=== PATIENT | female | born 1995 | race Caucasian/White ===

== ENCOUNTER 2023-02-07 16:30 | Outpatient (REF) | payer MEDICAID, SELFPAY | END 2023-02-07 16:31 | disposition home or self-care (01) | LOC: HO.HHCLNP 16:30 | PROVIDERS: Visit Provider Emergency Medicine | DX: R10.32 Left lower quadrant pain (principal) | CPT/HCPCS: 87086; 87088; 87186 ==

== ENCOUNTER 2023-05-23 10:31 | Outpatient (REF) | payer MEDICAID, OTHER, SELFPAY ==
[2023-05-23 11:18] LABS: MANUAL DIFF FLAG NO
[2023-05-23 11:27] LABS: Basophils Percent Auto 0.5 % (0-2); Eosinophils Percent Auto 0.7 % (0-4); Hemoglobin 13.2 g/dl (12.0-16.0); Imm Gran Abs Auto 0.02 X10*3/uL (0.00-0.03); Imm Gran Pct Auto 0.3 % (0.0-0.4); Lymphocytes Absolute Auto 2.3 X10*3/uL (1.2-4.9); Lymphocytes Percent Auto 38.4 % (20-40); Mean Corpuscular HGB Conc 33.8 g/dl (31.0-35.0); Mean Corpuscular Hemoglobin 30.3 pg (27.0-33.0); Mean Corpuscular Volume 89.7 fL (80.0-98.0); Mean Platelet Volume 9.9 fL (9.4-12.3); Monocytes Absolute Auto 0.3 X10*3/uL (0.1-1.2); Monocytes Percent Auto 5.7 % (2-11); Neutrophils Absolute Auto 3.2 x10*3/uL (2.0-8.3); Neutrophils Percent Auto 54.4 % (45-73); Platelet Count 340 X10*3/uL (160-400); Red Blood Count 4.35 X10*6/uL (4.20-5.50); Red Cell Distribution Width 12.6 % (11.0-16.0); White Blood Count 5.9 X10*3/uL (4.8-10.8)
[2023-05-23 11:36] LABS: Estimated Average Glucose 91 mg/dL; Hemoglobin A1c % 4.8 % (<6.0)
[2023-05-23 12:23] LABS: TSH reflex Free T4 1.47 uIU/mL (0.32-4.0)
[2023-05-24 17:24] LABS: C. trachomatis RNA TMA NOT DETECTED (NOT DETECTED); Candida glabrata RNA NOT DETECTED (NOT DETECTED); Candida species RNA NOT DETECTED (NOT DETECTED); N. gonorrhoeae RNA TMA NOT DETECTED (NOT DETECTED); Trichomonas vaginalis RNA NOT DETECTED (NOT DETECTED)
== END 2023-05-23 10:32 | disposition home or self-care (01) ==
LOC: HO.HHCL 10:31
PROVIDERS: Visit Provider Nurse Practitioner
DX: R82.90 Unspecified abnormal findings in urine (principal); R55 Syncope and collapse
CPT/HCPCS: 36415; 81513; 83036; 84443; 85025; 87086; 87088; 87186; 87481; 87491; 87591; 87661

== ENCOUNTER 2023-07-25 19:19 | Outpatient (REF) | payer MEDICAID, OTHER, SELFPAY | END 2023-07-25 19:20 | disposition home or self-care (01) | LOC: HO.HHCLNP 19:19 | PROVIDERS: Visit Provider Nurse Practitioner | DX: R82.90 Unspecified abnormal findings in urine (principal) | CPT/HCPCS: 87086; 87088; 87186 ==

== ENCOUNTER 2024-02-01 12:24 | Outpatient (REF) | payer MEDICAID, OTHER, SELFPAY ==
[2024-02-01 14:09] LABS: Anion Gap 10 (12-20); Blood Urea Nitrogen 10 mg/dL (9-16); Calcium 9.3 mg/dL (8.4-10.2); Carbon Dioxide 30 mmol/L (22-29); Chloride 105 mmol/L (96-108); Estimated Glomerular Filt Rate > 60; Glucose Random 77 mg/dL (60-115); Potassium 3.2 mmol/L (3.3-5.1); Sodium 142 mmol/L (135-145)
[2024-02-02 11:06] LABS: Bacterial Vaginosis PCR NEGATIVE (Negative); Candida Group PCR NOT DETECTED (Not Detect); Candida glab krusei PCR NOT DETECTED (Not Detect); Trichomonas vaginalis PCR NOT DETECTED (Not Detect)
[2024-02-02 11:19] LABS: Prolactin 6.8 ng/mL
== END 2024-02-01 12:25 | disposition home or self-care (01) ==
LOC: HO.HHCL 12:24
PROVIDERS: Visit Provider Nurse Practitioner
DX: R82.90 Unspecified abnormal findings in urine (principal); N64.3 Galactorrhea not associated with childbirth
CPT/HCPCS: 0352U; 36415; 80048; 84146; 87086; 87088; 87186

== ENCOUNTER 2024-04-14 11:38 | Outpatient (REF) | payer MEDICAID, OTHER, SELFPAY ==
[2024-04-14 13:56] LABS: Anion Gap 11 (12-20); Blood Urea Nitrogen 11 mg/dL (9-16); Calcium 9.2 mg/dL (8.4-10.2); Carbon Dioxide 24 mmol/L (22-29); Chloride 108 mmol/L (96-108); Estimated Glomerular Filt Rate > 60; Glucose Random 83 mg/dL (60-115); Potassium 4.1 mmol/L (3.3-5.1); Sodium 139 mmol/L (135-145)
[2024-04-14 16:43] LABS: CT PCR NOT DETECTED (Not Detect.); NG PCR NOT DETECTED (Not Detect.)
== END 2024-04-14 11:39 | disposition home or self-care (01) ==
LOC: HO.HHCL 11:38
PROVIDERS: Visit Provider Nurse Practitioner
DX: E87.6 Hypokalemia (principal); R82.90 Unspecified abnormal findings in urine
CPT/HCPCS: 80048; 87086; 87491; 87563; 87591; 87798

== ENCOUNTER 2024-09-19 13:10 | Outpatient (REF) | payer OTHER, SELFPAY ==
[2024-09-24 07:14] LABS: Mycoplasma hominis PCR Not Detected (Not Detected)
== END 2024-09-19 13:11 | disposition home or self-care (01) ==
LOC: HO.HHCL 13:10
PROVIDERS: Visit Provider Nurse Practitioner
DX: R82.90 Unspecified abnormal findings in urine (principal)
CPT/HCPCS: 87086; 87088; 87186; 87563; 87798

== ENCOUNTER 2024-11-12 10:17 | Outpatient (AMB) | payer OTHER, SELFPAY ==
--- NOTE | 2024-11-12 10:15 | MHC.OFFVIS ---
Intake Visit Reasons: recurrent UTI Intake Note: New Patient is present for recurrent UTI Urology Rx:none PVR:56 mls Blood Thinners:none Imaging completed: none Arborist Required: No Accompanied by: Self / Same As Patient Allergies No Known Allergies Allergy (Verified 11/12/24 10:30) HPI Comments Details: Preeti is a pleasant female. She is seen for the following urologic conditions - recurrent UTI History of recurrent UTI as child Episode of pyelonephritis when in late teens Appears to have infections with minimal symptoms Notices that timing is worse at end of cycle No relationship to intercourse PVR today under 60 cc Recommend renal ultrasound Start suppression vitamin-C with methenamine Six-month follow-up Review of Systems Const Denies chills and Denies fever(s) Card Reports no additional complaints and Denies syncope Resp Denies cough GI Denies abdominal pain and Denies heartburn Reports as per HPI and Denies change in libido Neuro Denies syncope Psych Denies change in libido Endo Denies change in libido Physical Exam Const General: cooperative, healthy appearing, comfortable and no acute distress Orientation/consciousness: patient oriented x3 HEENT Face and sinus: Yes normal facial exam Mouth: moist mucous membranes Neck Neck: Yes normal visual inspection, Yes full ROM and Yes trachea midline Chest Chest palpation & inspection: normal inspection of the chest Resp Effort & Inspection: normal respiratory effort, able to speak in complete sentences and no respiratory distress GI Inspection: Yes normal to inspection Back/Spine/Pelvis Cervical Spine: normal cervical lordosis Thoracic/Lumbar Spine: thoracic and lumbar spine normal to inspection Skin General skin exam: no rashes or lesions noted Neuro General: patient oriented x3, gait normal, tone normal and moves all extremities Extrem General: Yes normal to inspection and Yes capillary refill normal Assessment & Plan Assessment & Plan (1) Recurrent UTI: Code(s): N39.0 - Urinary tract infection, site not specified Category: Medical Plan Six-month follow-up nurse-practitioner Orders: Orders US renal BI 6 Months N39.0 - Urinary tract infection, site not specified Medications: New ascorbic acid (vitamin C) 1,000 mg PO DAILY 90 tabs 1RF 90 days N39.0 - Urinary tract infection, site not specified methenamine hippurate 1 g PO DAILY 90 tabs 1RF 90 days N39.0 - Urinary tract infection, site not specified Patient Instructions: This note is constructed using voice recognition software. While every effort has been made to ensure accuracy rubber heel and sole press tender errors may have been included. Imaging studies, laboratory and physical exam results were discussed and reviewed in detail. No major barriers to patient understanding were identified. An opportunity to ask questions regarding the treatment plan was provided. All questions were answered. The patient expressed understanding and agreement with the above treatment plan. The patient is aware they should contact our office by phone for worsening of their current condition or the appearance of new urologic symptoms. Compliance is encouraged with any medications and followup testing that is ordered. It is a privilege to participate in the urologic care of your patient. If you have any questions or concerns regarding treatment for the above conditions, or other urologic issues, please do not hesitate to contact me. The office telephone contact is [phone]. Sincerely, Dr Juan Hood MD, [facility] - Urology Compassionate Specialist Care for the Genitourinary System Coding Level of Care Code New Pt Level 4 (74762) Diagnoses Recurrent UTI N39.0
--- OUTSIDE RECORDS SUMMARY | 2024-11-12 12:41 | XMS_ITS | Encounter Summary ---
Author Organization [employer] [facility] Address [address] [place] [address] [address] [place] [address] Care Team Providers Care Park Police Name Role Phone Francisca Barrios NP Primary Care Provider Reason for Visit * Reason Onset Date Comments New Patient 12/22/2022 Encounter Details Date Type Department Care Team (Late st Contact Info) Description 12/22/2022 Telephone [facility] [address] [place] [id number] Dario Green MD [address] [place] [address] New Patient Social History Tobacco Use Types Packs/Day Years Used Date Smoking Tobacco: Never Assessed Comments Unknown Sex and Gender Information Value Date Recorded Sex Assigned at Female 02/07/2023 1:00 PM EST Legal Sex Female 1:53 PM EDT Gender Identity Female 02/07/2023 1:00 PM EST Sexual Orientation Straight 02/07/2023 1: 00 PM EST documented as of this encounter Miscellaneous Notes * Telephone Encounter - Portia Oswald - 12/22/2022 10:18 AM EDT 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 EFFECTIVE SINCE 12/22/2022 documented in this encounter Plan of Treatment Upcoming Encounters Date Type Department Care Team (Late st Contact Info) Description 12/22/2024 9:00 AM EST Office Visit [facility] [address] [place] [address] Francisca Barrios NP [address] [place], [place] [phone] 01/13/2025 10:30 AM EST Office Visit [facility] [address] [place], [place] [phone] Etta Mendoza, OD [address] [place], [place] [phone] documented as of this encounter Visit Diagnoses Not on filedocumented in this encounter Care Teams Park Police Relationship Specialty Start Date End Date Francisca Barrios NP [address] [place] [address] [id number] PCP - General Family Medicine 05/23/23 documented as of this encounter
--- OUTSIDE RECORDS SUMMARY | 2024-11-12 12:41 | XMS_ITS | Encounter Summary ---
Author Organization [facility] Address [address] [place] [address] Care Team Providers Care Lead Mechanic Name Role Phone Francisca Barrios NP Primary Care Provider [phone] Encounter Details Date Type Department Care Team (Late st Contact Info) Description 03/28/2024 Orders Only [facility] [address] [place] [address] Francisca Barrios NP [address] [place] [address] Malodorous urine (Primary Dx) Social History Tobacco Use Types Packs/Day Years Used Date Smoking Tobacco: Never Passive Smoke Exposure: Never Smokeless Tobacco: Never Alcohol Use Standard Drinks/Week Comments Never 0 (1 standard drink = 0.6 oz pur e alcohol) Depression Answer Date Recorded Patient Health Questionnaire-9 Score 0 05/23/2023 Patient Health Questionnaire-9 Score 0 05/23/2023 Last PHQ-9: Questionnaire Data Not on file 0 05/23/2023 Housing Stability Answer Date Recorded What is your housing situation today? I have nancy sales 05/23/[address] you li ve. Do you have problems with any of the following? None of the above 05/23/2023 Food Insecurity Answer Date Recorded Within the past 12 months, y ou worried that your food would run out before you got money to buy more: Never True 05/23/2023 Within the past 12 months,th e food you bought just didn't last and you didn't have enough money to get more: Never True 04/2023 Transportation Answer Date Recorded In the past 12 months, has l ack of transportation kept you from medical appts, meetings, work or from getting things needed for daily living? No 05/23/2023 Utilities Answer Date Recorded In the past 12 months, has t he electric, gas, oil or water company threatened to shut off services in your home? No 04/04/2023 Depression Answer Date Recorded Patient Health Questionnaire-2 Score 0 05/23/2023 Comments No Sex and Gender Information Value Date Recorded Sex Assigned at Female 02/07/2023 1:00 PM EST Legal Sex Female 1:53 PM EDT Gender Identity Female 02/07/2023 1:00 PM EST Sexual Orientation Straight 02/07/2023 1: 00 PM EST documented as of this encounter Plan of Treatment Upcoming Encounters Date Type Department Care Team (Late st Contact Info) Description 12/22/2024 9:00 AM EST Office Visit [facility] [address] [place] [address] Francisca Barrios NP [address] [place] [address] 01/13/2025 10:30 AM EST Office Visit [facility] [address] [place] [address] TarkaEtta, OD [address] [place] [address] documented as of this encounter Procedures Procedure Name Priority Date/Time Associated Diagnosis Comments CULTURE, URINE, ROUTINE Routine 04/14/2024 11:40 AM EST Malodorous urine documented in this encounter Results * Culture, Urine, Routine (04/14/2024 11:40 AM EST) Urine Urine specimen obtained by clean catch procedure / Unknown 04/14/2024 11:40 AM EST 04/14/2024 1:44 PM EST Comment:[facility] - 04/15/2024 9:10 AM EST Urine Culture No growth. Specimen Source: Urine clean catch Francisca Barrios NP LAB MICROBIOLOGY - GENERAL DARSHANA MONTEIRO Final Result [facility] [address] [place] [address] [phone] documented in this encounter Visit Diagnoses Diagnosis Malodorous urine- Primary documented in this encounter Additional Health Concerns Assessment Noted Time PHQ-9 Depression Total Score: 0 05/23/19 24 9:05 AM EDT documented as of this encounter Care Teams Lead Mechanic Relationship Specialty Start Date End Date Francisca Barrios NP [address] [place] [address] PCP - General Family Medicine 05/23/23 documented as of this encounter
--- OUTSIDE RECORDS SUMMARY | 2024-11-12 12:41 | XMS_ITS | Encounter Summary ---
Author Organization [facility] Address [address] [place] [address] Care Team Providers Care Pipe Jeeper Name Role Phone Francisca Barrios NP Primary Care Provider [phone] Reason for Referral * Consultation (Routine) - Authorized Specialty Diagnoses / Procedures Referred By Ramona carter Referred To Contact Urology Diagnoses Malodorous urine Francisca Barrios NP [address] [place] [address] Phone: tel: fax: [facility] [address] [place] [address] Drive [address] [place], [place] Phone: tel: fax: Referral ID Status Reason Start Date Expiration Date Visits Requested Visits Authorized [id number] Authorized Specialty Services Required 09/29/2024 09/29/2025 1 1 Encounter Details Date Type Department Care Team (Late st Contact Info) Description 09/29/2024 Results Follow-Up [facility] [address] [place] [address] Francisca Barrios NP [address] [place] [address] Culture, Urine, Routine, Mycoplasma/Ureaplasm a Panel Social History Tobacco Use Types Packs/Day Years Used Date Smoking Tobacco: Never Passive Smoke Exposure: Never Smokeless Tobacco: Never Alcohol Use Standard Drinks/Week Comments Never 0 (1 standard drink = 0.6 oz pur e alcohol) Depression Answer Date Recorded Patient Health Questionnaire-9 Score 0 09/15/2024 Patient Health Questionnaire-9 Score 0 09/15/2024 Last PHQ-9: Questionnaire Data Not on file 0 09/15/2024 Housing Stability Answer Date Recorded What is your housing situation today? I have nancy sales 09/15/[address] you li ve. Do you have problems with any of the following? None of the above 09/15/2024 Food Insecurity Answer Date Recorded Within the past 12 months, y ou worried that your food would run out before you got money to buy more: Never True 09/15/2024 Within the past 12 months,th e food you bought just didn't last and you didn't have enough money to get more: Never True Transportation Answer Date Recorded In the past 12 months, has l ack of transportation kept you from medical appts, meetings, work or from getting things needed for daily living? No 09/15/2024 Utilities Answer Date Recorded In the past 12 months, has t he electric, gas, oil or water company threatened to shut off services in your home? No 09/15/2024 Depression Answer Date Recorded Patient Health Questionnaire-2 Score 0 09/15/2024 Internet Access Answer Date Recorded Internet Access Q1 Yes 09/15/2024 Internet Access Q2 Not on file 09/15/2024 Comments No Sex and Gender Information Value [...] Description 12/22/2024 9:00 AM EST Office Visit [facility] [address] [place] [address] Francisca Barrios NP [address] [place] [address] 01/13/2025 10:30 AM EST Office Visit [facility] [address] [place] [address] Etta Mendoza, OD [address] [place] [address] Scheduled Referrals Name Type Priority Associated Diagnoses Orde r Schedule Referral to Urology Outpatient Referral Routine Malodorous urine Expected: 09/29/2024 (Approximate), Expires: 09/29/2025 documented as of this encounter Visit Diagnoses Diagnosis Malodorous urine- Primary documented in this encounter Additional Health Concerns Assessment Noted Time PHQ-9 Depression Total Score: 0 09/16/19 25 3:09 PM EDT documented as of this encounter Care Teams Pipe Jeeper Relationship Specialty Start Date End Date Francisca Barrios NP [address] [place] [id number] PCP - General Family Medicine 05/23/23 documented as of this encounter
--- OUTSIDE RECORDS SUMMARY | 2024-11-12 12:41 | XMS_ITS | Encounter Summary ---
Author Organization [employer] [facility] Address [address] [place] [address] Care Team Providers Care Supervisor Compounding And Finishing Name Role Phone Francisca Barrios NP Primary Care Provider Encounter Details Date Type Department Care Team (Late st Contact Info) Description 12/06/2023 Orders Only [facility] [address] [place] [address] Provider, MD Fifi Social History Tobacco Use Types Packs/Day Years [...] Description 12/22/2024 9:00 AM EST Office Visit [facility] [address] [place] [address] Francisca Barrios NP [address] [place] [address] 01/13/2025 10:30 AM EST Office Visit [facility] [address] [place], [place] [phone] Etta Mendoza, OD [address] [place] [address] documented as of this encounter Procedures Procedure Name Priority Date/Time Associated Diagnosis Comments HM PAP/HPV Routine 12/28/2020 10:49 AM EST documented in this encounter Results * HM PAP/HPV (12/28/2020 10:49 AM EST) us Historical Provider HEALTH MAINTENANCE Final Result documented in this encounter Visit Diagnoses Not on filedocumented in this encounter Additional Health Concerns Assessment Noted Time PHQ-9 Depression Total Score: 0 05/23/19 9:05 AM EDT documented as of this encounter Care Teams Supervisor Compounding And Finishing Relationship Specialty Start Date End Date Francisca Barrios NP [address] [place] [address] PCP - General Family Medicine 05/23/23 documented as of this encounter
--- OUTSIDE RECORDS SUMMARY | 2024-11-12 12:41 | XMS_ITS | Clinical Summary ---
Author Organization [employer] [facility] Address [address] [place] [address] Care Team Providers Care Brakes Inspector Name Role Phone Francisca Barrios NP Primary Care Provider [phone] Allergies No known active allergies Medications Multiple Vitamin (multivitamin) tablet Take 1 tablet by mouth in the morning. Active Active Problems Problem Noted Date Diagnosed Date Dental calculus 03/19/2024 Normal oral exam 03/19/2024 Encounter for counseling 10/09/2023 Assessment & Plan (10/09/2023 10:06 AM EDT): -advised application of cold compress to facilitate drying -try giving child a stuffed animal of his choice with mother's scent -wear a supportive bra and avoid breast stimulation -try inclusion of these herbs such as lon, parsley, peppermint, priscilla in diet to facilitate drying Pre-syncope 05/23/2023 Assessment & Plan (05/23/2023 1:48 PM EDT): -likely vasovagal response following -may be orthostatic hypotension. advised slow position changes and keep salty snack on hand -advised increased fluid intake -monitor symptoms closely noting onset, duration, factors affecting it -ordered CBC, TSH, and A1c to evaluate anemia or metabolic dysfunction as potential cause -follow-up 2 months -will call with results Malodorous urine 05/23/2023 Assessment & Plan (10/09/2023 10:10 AM EDT): -POCT urinalysis positive with nitrites -urine sent out for culture -prescription for nitrofurantoin sent to pharmacy. Will change antibiotic pending culture results -advised increase water intake and close monitoring -consider consumption of pure cranberry juice or cranberry tablets -previously ordered CT of abdomen and pelvis requisition reprinted. Patient advised to call [facility] for scheduling -will follow-up with pt after CT results have been obtained Assessment & Plan (05/23/2023 1:12 PM EDT): -POCT urinalysis positive with nitrites -urine sent out for culture -prescription for nitrofurantoin sent to pharmacy. Will change antibiotic pending culture results -advised increase water intake -previous CT order reprinted. Patient advised to call [facility] for scheduling Skin lesion of breast 05/23/2023 Assessment & Plan (05/23/2023 1:19 PM EDT): -likely seborrheic dermatitis -patient advised to monitor for changes in color/shape/boarder, onset of itching, drainage Urinary tract infection due to extended-spectrum beta lactamase (ESBL) producing Escherichia coli 12/27/2020 Overview (09/12/2024): Macrobid sent to pharmacy 12/27. Persistent posiitive. Changed to Augmentin 02/02/21 MOHINDER 02/25/21 : ESCHERICHIA COLI ESBL - treated with Macrobid 03/18/21 - ESCHERICHIA COLI ESBL - treated with Macrobid JUAN A - recommendations 04/13/21. Recommendations: 1. Renal ultrasound - 04/28 nml 2. Suppressive treatment for recurrent UTI such as nitrofurantoin 100mg nightly at HS until 35-36 weeks. 3. Growth ultrasound at 32 & 36 weeks. 4. Review s/s of PTL at her visit. 5. Consider Urology Consult. 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 Overview (09/12/2024): Prophylaxis at 36 weeks with Acyclovir 400 mg TID Sterile speculum exam in labor- or thorough exam of vagina, cervix, vulva Encounters Date Type Department Care Team Description 10/03/[address] [address] Camila Arroyo [place] october recall 09/29/2024 Results Follow-Up [facility] [address] [place] [address] Francisca Barrios NP Culture, Urine, Routine, Mycoplasma/Ureaplas ma Panel 09/18/2024 3:00 PM EDT Office Visit [facility] ADULT DENTAL [address] [place] [address] Mary Giron Dental calculus (Primary Dx) 09/17/2024 Travel 09/17/2024 Telephone [facility] OPT[facility] [address] [place] [address] Etta Mendoza, OD 09/15/2024 2:30 PM EDT Office Visit [facility] MED[facility] [address] [place] [address] Francisca Barrios NP Malodorous urine (Primary Dx); Diminished night vision 09/15/2024 Travel 09/12/2024 Telephone [facility] [address] [place] [address] Pauly Reynolds [place] Chart Prep 08/21/2024 Telephone [facility] [address] [place] [address] Francisca Barrios NP Referral from Last 3 Months Immunizations Immunization Administration Dates Next Due HepB-CpG 05/16/2023,04/04/2023 Influenza Injectable Quadriv alant Preservative Free IIV4 MDCK 02/09/2021 Tdap 04/12/2021,01/11/2021 Family History Medical History Relation Name Comments Heart disease Maternal Grandfather Hyperlipidemia Maternal Grandmother Hyperlipidemia Mother Thyroid disease Mother Heart disease Paternal Grandfather Relation Name Status Comments Maternal Grandfather of heart attack in 40's Maternal Grandmother Mother Paternal Grandfather fr om heart attack age 70's-80's Social History Tobacco Use Types Packs/Day Years Used Date Smoking Tobacco: Never Passive Smoke Exposure: Never Smokeless Tobacco: Never Tobacco Cessation:Counseling Given: Not Answered Alcohol Use Standard Drinks/Week Comments Never 0 [...] Orientation Straight 02/07/2023 1: 00 PM EST Last Filed Vital Signs Vital Sign Reading Time Taken Comments Blood Pressure 110/68 09/18/2024 3:06 PM EDT Pulse 80 09/15/2024 2:43 PM EDT Temperature 37.3 C (99.2 F) 09/15/2024 2:43 PM EDT Respiratory Rate 20 09/15/2024 2:43 PM EDT Oxygen Saturation 99% 09/15/2024 2:43 PM EDT Inhaled Oxygen Concentration - - Weight 56.8 kg (125 lb 3.2 oz) 09/15/2024 2:43 P M EDT Height 152.4 cm (5') 09/15/2024 2:43 PM EDT Body Mass Index 24.45 09/15/2024 2:43 PM EDT Plan of Treatment Upcoming Encounters Date Type Department Care Team (Late st Contact Info) Description 12/22/2024 9:00 AM EST Office Visit [facility] [address] [place] [address] Francisca Barrios NP [address] [place] [address] 01/13/2025 10:30 AM EST Office Visit [facility] OPT[facility]RY [address] [place] [address] Eulasonny Etta, OD [address] [place] [address] Health Maintenance Due Date Last Done Comments HIV Screening 1994 Family Planning (PISQ) 2009 HPV Vaccines (1 - 3-dose series) 2009 Hepatitis C Screening 2012 HPV/Cotest 2024 Dental Oral Exam 09/17/2024 03/19/2024 COVID-19 Vaccine (1 - 2023-2 5 season) 2024 Influenza Vaccine (#1) 2024 02/09/2021 Alcohol/Substance Use Screening 01/31/2025 02/01/2024 Dental X-Ray: Bitewings 03/20/2025 03/19/2024 Dental Prophylaxis 03/22/2025 09/18/2024, 03/19/2024 Depression Screening 09/15/2025 09/15/2024, 09/15/2024 Disability Screening 09/15/2025 09/15/2024 SDOH Screening 09/15/2025 09/15/2024 Tobacco Screening 09/18/2025 09/18/2024 Cervical Cancer Screening 09/12/2026 Pap Smear 09/12/2026 09/13/2023, 12/28/2020, 12/28/2020 Dental X-Ray: Full Mouth 03/20/2027 03/19/2024 DTaP/Tdap/Td Vaccines (3 - T d or Tdap) 04/12/2031 04/12/2021, 01/11/2021 Zoster Vaccines (1 of 2) 2044 RSV Patients and Patients Aged 60 years or older (1 - 1-dose 75+ series) 2069 Hepatitis B Vaccines Completed 05/16/2023, 04/04/2023 HIB Vaccines Aged Out No longer eligi ble based on patient's age to complete this topic Hepatitis A Vaccines Aged Out No long er eligible based on patient's age to complete this topic IPV Vaccines Aged Out No longer eligi ble based on patient's age to complete this topic Meningococcal B Vaccine Aged Out No l onger eligible based on patient's age to complete this topic Meningococcal Vaccine Aged Out No alejandra amy eligible based on patient's age to complete this topic Pneumococcal Vaccine: Pediatrics (0 to 5 Years) and At-Risk Patients (6 to 49) Years Aged Out No longer eligible b ased on patient's age to complete this topic RSV under 20 months Aged Out No longe r eligible based on patient's age to complete this topic Rotavirus Vaccines Aged Out No longer eligible based on patient's age to complete this topic Procedures Procedure Name Priority Date/Time Associated Diagnosis Comments MYCOPLASMA/UREAPLASMA PANEL Routine 09/19/2024 1:17 PM EDT Malodorous urine CULTURE, URINE, ROUTINE Routine 09/19/2024 1:17 PM EDT Malodorous urine ORAL HYGIENE INSTRUCTIONS Routine 09/18/2024 3:00 PM EDT Dental calculus PROPHYLAXIS - ADULT Routine 09/18/2024 3 :00 PM EDT Dental calculus INTRAORAL - COMPLETE SERIES OF RADIOGRAPHIC IMAGES Routine 03/19/2024 8:00 AM EST Dental calculus COMPREHENSIVE ORAL EVALUATION - NEW OR ESTABLISHED PATIENT Routine 03/19/2024 8:00 AM EST HM PAP/HPV Routine 12/28/2020 from Last 3 Months or Most Recently Relevant to Health Maintenance Results * (ABNORMAL) Mycoplasma/Ureaplasma??Panel (09/19/2024 1:17 PM EDT) Hamilton(R), Mycoplasma Hominis, Real-Time Pcr Not Detected Not Detected [facility] Comment:THIS TEST WAS PERFOR MED AT:[employer]/[id number] [place] [address]ZZRJFQTESTELLA MCCURDY MD,PHD Mycoplasma Genitalium, rRNA,TMA Not Detected Not Detected [facility] Comment:THIS TEST WAS PERFOR MED AT:[employer]/[address] [id number] MCCURDY MD,PHD U. Parvum DNA Detected(A ) Not Detected [facility] U. Urealyticum DNA Not Detected Not Detected [facility] Comment:This test was develo ped and its analyticalperformance characteristics have been determinedby [employer] [place], [place].It has not been cleared or approved by the FDA. Thisassay has been validated pursuant to the CLIAregulations and is used for clinical purposes.THIS TEST WAS PERFORMED AT:[employer]/[id number] [place] [address]WFOIWGGESTELLA MCCURDY MD,PHD Urine (Vaginal Swab) 09/19/2024 1:17 PM EDT 09/19/2024 4:32 PM EDT Francisca Barrios NP LAB MICROBIOLOGY - GENERAL DARSHANA MONTEIRO Final Result [facility] [address] [place] [phone] * Culture, Urine, Routine (09/19/2024 1:17 PM EDT) Urine Urine specimen obtained by clean catch procedure / Unknown 09/19/2024 1:17 PM EDT 09/19/2024 4:32 PM EDT Comment:CC Narrative [facility] - 09/21/2024 7:23 AM EDT Escherichia coli ESBL Note: NOTE: Extended-Spectrum Beta-Lactamase enzyme present Quant > 100,000 cfu/mL Escherichia coli: Ampicillin >=32(R) Escherichia coli: Cefazolin (Urine) >=32(R) Escherichia coli: Cefepime 16(R) Escherichia coli: Ceftriaxone >=64(R) Escherichia coli: Ciprofloxacin >=4(R) Escherichia coli: Ertapenem <=0.12(S) Escherichia coli: Gentamicin <=1(S) Escherichia coli: Nitrofurantoin <=16(S) Escherichia coli: Trimethoprim/Sulfamethoxazole <=20(S) Specimen Source: Urine clean catch Francisca Barrios NP LAB MICROBIOLOGY - [facility]AL [facility] Final Result [facility] [address] [place] [phone] [phone] * PAP/HPV (12/28/2020) Pap Smear 1. NILM 1. NILM Historical Provider MD HEALTH MAINTENANCE Final Result from Last 3 Months or Most Recently Relevant to Health Maintenance [facility] Care Teams Brakes Inspector Relationship Specialty Start Date End Date Francisca Barrios NP [address] [place] [address] PCP - General Family Medicine 05/23/23
== END 2024-11-12 11:22 | disposition home or self-care (01) ==
LOC: HO.HUSH 10:17
PROVIDERS: Visit Provider Urology
DX: Z13.9 Encounter for screening, unspecified (principal); N39.0 Urinary tract infection, site not specified
CPT/HCPCS: 99204

== ENCOUNTER → 2024-11-12 10:17 | Outpatient (BNVA) | payer OTHER, SELFPAY | PROVIDERS: Visit Provider Urology | DX: N39.0 Urinary tract infection, site not specified (principal); Z13.9 Encounter for screening, unspecified | CPT/HCPCS: 51798; 81003; 99202 ==

== ENCOUNTER 2024-12-22 10:40 | Outpatient (REF) | payer OTHER, SELFPAY ==
--- OUTSIDE RECORDS SUMMARY | 2024-12-22 09:15 | XMS_ITS | Encounter Summary ---
Author Organization [employer] [facility] Address [address], [place] [address] Care Team Providers Care Administrative Support Coordinator Name Role Phone Francisca Barrios NP Primary Care Provider [phone] Reason for Referral * Imaging (Routine) - Authorized Specialty Diagnoses / Procedures Referred By Ashleyac t Referred To Contact Radiology Diagnoses History of ovarian cyst Procedures Us Pelvis complete Francisca Barrios NP [address] [place] [address] Phone: tel: fax: [address] Phone: tel: fax: Referral ID Status Reason Start Date Expiration Date V isits Requested Visits Authorized [id number] Authorized 12/22/2024 12/22/2025 1 1 * Imaging (Routine) - Authorized Specialty Diagnoses / Procedures Referred By Contmiguel t Referred To Contact Radiology Diagnoses History of ovarian cyst Procedures US Pelvis Transvaginal Francisca Barrios NP [address] [place] [address] Phone: tel: fax: [address] Phone: tel: fax: Referral ID Status Reason Start Date Expiration Date V isits Requested Visits Authorized [id number] Authorized 12/22/2024 12/22/2025 1 1 Reason for Visit * Reason Comments Annual Exam Encounter Details Date Type Department Care Team (Latest Contact Info) Description 12/22/2024 9:15 AM EST Office Visit [facility] [address] [place] [address] Francisca Barrios NP [address] [place] [address] Acute bilateral low back pain without sciatica (Primary Dx); Bilateral anterior knee pain; Palpitations; Routine screening for STI (sexually transmitted infection); Encounter for immunization; Dietary counseling; Exercise counseling; Overweight; Encounter for initial prescription of transdermal patch hormonal contraceptive device; History of ovarian cyst Social History Tobacco Use Types Packs/Day Years [...] PM EST documented as of this encounter Last Filed Vital Signs Vital Sign Reading Time Taken Comments Blood Pressure 110/80 12/22/2024 9:10 AM EST Pulse 62 12/22/2024 9:10 AM EST Temperature 36.8 C (98.2 F) 12/22/2024 9:10 AM EST Respiratory Rate 15 12/22/2024 9:10 AM EST Oxygen Saturation 99% 12/22/2024 9:10 AM EST Inhaled Oxygen Concentration - - Weight 58.6 kg (129 lb 3.2 oz) 12/22/2024 9:10 A M EST Height 152.4 cm (5') 12/22/2024 9:10 AM EST Body Mass Index 25.23 12/22/2024 9:10 AM EST documented in this encounter Plan of Treatment Upcoming Encounters Date Type Department Care Team (Late st Contact Info) Description 01/13/2025 10:30 AM EST Office Visit [facility] [address] [place], [place] [phone] TarkaEtta, OD [address] [place] [address] Scheduled Orders Name Type Priority Associated Diagnoses Orde r Schedule TSH W/Reflex to FT4 Lab Routine Palpitations Expected: 12/22/2024 (Approximate), Expires: 12/22/2025 CBC auto differential Lab Routine Palpitations Expected: 12/22/2024 (Approximate), Expires: 12/22/2025 Basic Metabolic Panel Lab Routine Palpitations Expected: 12/22/2024 (Approximate), Expires: 12/22/2025 ECG 12 lead ECG Routine Palpitations Ordered: 12/22/2024 Chlamydia/N. Gonorrhoeae, PCR, Urine Lab Routine Routine screening for STI (sexually transmitted infection) Ordered: 12/22/2024 Trichomonas RNA (Urine/Vaginal) Lab Routine Routine screening for STI (sexually transmitted infection) Ordered: 12/22/2024 Syphilis Screen Lab Routine Routine screening for STI (sexually transmitted infection) Expected: 12/22/2024 (Approximate), Expires: 12/22/2025 HIV-1/2 Antigen and Antibodies, Fourth Generation, with Reflexes Lab Routine Routine screening for STI (sexually transmitted infection) Expected: 12/22/2024 (Approximate), Expires: 12/22/2025 Hepatitis C Antibody with Reflex to HCV, RNA, Quantitative, Real-Time PCR Lab Routine Routine screening for STI (sexually transmitted infection) Expected: 12/22/2024 (Approximate), Expires: 12/22/2025 Hepatitis B surface antigen, EIA Lab Routine Routine screening for STI (sexually transmitted infection) Expected: 12/22/2024 (Approximate), Expires: 12/22/2025 Hepatitis B Surface Antibody, Qualitative Lab Routine Routine screening for STI (sexually transmitted infection) Expected: 12/22/2024 (Approximate), Expires: 12/22/2025 Hepatitis B Core Antibody, Total Lab Routine Routine screening for STI (sexually transmitted infection) Expected: 12/22/2024 (Approximate), Expires: 12/22/2025 US Pelvis Transvaginal Imaging Routine History of ovarian cyst Expected: 12/22/2024, Expires: 12/22/2025 Us Pelvis complete Imaging Routine History of ovarian cyst Expected: 12/22/2024, Expires: 12/22/2025 documented as of this encounter Procedures Procedure Name Priority Date/Time Associated Diagnosis Comments POCT , URINE Routine 12/22/2024 10:46 AM EST Encounter for initial prescription of transdermal patch hormonal contraceptive device documented in this encounter Results * POCT , urine manually resulted (12/22/2024 10:46 AM EST) Preg Test, Ur Negative Negative, Indeterminate, None Detected, Invalid, Specimen unsatisfactory for evaluation, Weakly Positive, 2+ QC Media Lot # [id number] Lot# Expiration Date [id number] Urine 12/22/2024 10:4 6 AM EST us Fracnisca Odilon [facility] REPRESENTATIVE POINT OF CARE TEST ENTER/EDIT O RDERABLES Final Result documented in this encounter Visit Diagnoses Diagnosis Acute bilateral low back pain without sciatica- Primary Bilateral anterior knee pain Palpitations Routine screening for STI (sexually transmitted infection) Screening examination for venereal disease Encounter for immunization Dietary counseling Dietary surveillance and counseling Exercise counseling Overweight Encounter for initial prescription of transdermal patch hormonal contraceptive device History of ovarian cyst Personal history of other genital system and obstetric disorders documented in this encounter Additional Health Concerns Assessment Noted Time PHQ-9 Depression Total Score: 0 09/16/19 25 3:09 PM EDT documented as of this encounter Care Teams Administrative Support Coordinator Relationship Specialty Start Date End Date Francisca Barrios NP [address] [place] [address] PCP - General Family Medicine 05/23/23 documented as of this encounter
--- OUTSIDE RECORDS SUMMARY | 2024-12-22 13:02 | XMS_ITS | Encounter Summary ---
Author Organization [facility] Address [address] [place] [address] Care Team Providers Care Tobacco Wrapping Machine Tender Name Role Phone Francisca Barrios NP Primary Care Provider [phone] Reason for Visit * Reason Onset Date Comments Chart Prep 12/19/2024 Encounter Details Date Type Department Care Team ([facility] st Contact Info) Description 12/19/2024 Telephone [facility] [address] [place] [address] Francisca Barrios NP [address] [place] [address] Chart Prep Social History Tobacco Use Types Packs/Day Years [...] encounter Miscellaneous Notes * Telephone Encounter - Jv Chase [place] - 12/19/2024 2:13 PM EDT Chart Prep Labs: done Images: not applicable Referrals: complete Vaccines due: Covid, Flu, and HPV Screenings: not applicable Overdue care gaps: Oral health screening and TobaccoLMP documented in this encounter Plan of Treatment Upcoming Encounters Date Type Department Care Team (Late st Contact Info) Description 01/13/2025 10:30 AM EST Office Visit [facility] [address] [place] [address] Etta Mendoza, OD [address] [place] [address] documented as of this encounter Visit Diagnoses Not on filedocumented in this encounter Additional Health Concerns Assessment Noted Time PHQ-9 Depression Total Score: 0 09/16/19 3:09 PM EDT documented as of this encounter Care Teams Tobacco Wrapping Machine Tender Relationship Specialty Start Date End Date Francisca Barrios NP [address] [place] [address] PCP - General Family Medicine 05/23/23 documented as of this encounter
--- OUTSIDE RECORDS SUMMARY | 2024-12-22 13:02 | XMS_ITS | Encounter Summary ---
Author Organization [employer] [facility] Address [address] [place] [address] Care Team Providers Care Message Clerk Name Role Phone Francisca Barrios NP Primary Care Provider Encounter Details Date Type Department Care Team (Late st Contact Info) Description 12/06/2023 Orders Only [facility] MED[facility] [address] [place] [address] Provider, MD Fifi Social History Tobacco Use [...] [facility] [address] [place] [address] Tarka, Etta, OD [address] [place] [address] documented as of this encounter Procedures Procedure Name Priority Date/Time Associated Diagnosis Comments HM PAP/HPV Routine 12/28/2020 10:49 AM EST documented in this encounter Results * HM PAP/HPV (12/28/2020 10:49 AM EST) Historical Provider HEALTH MAINTENANCE Final Result documented in this encounter Visit Diagnoses Not on filedocumented in this encounter Additional Health Concerns Assessment Noted Time PHQ-9 Depression Total Score: 0 05/23/19 9:05 AM EDT documented as of this encounter Care Teams Message Clerk Relationship Specialty Start Date End Date Francisca Barrios NP [address] [place] [address] PCP - General Family Medicine 05/23/23 documented as of this encounter
--- OUTSIDE RECORDS SUMMARY | 2024-12-22 13:02 | XMS_ITS | Encounter Summary ---
Author Organization [employer] [facility] Address [address] [place] [address] Care Team Providers Care Member Of Parliament Name Role Phone Odilonabran Francisca CLARK Primary Care Provider [phone] Encounter Details Date Type Department Care Team (Latest Contact Info) Description 12/22/2024 Travel Social History Tobacco Use Types Packs/Day Years [...] Description 01/13/2025 10:30 AM EST Office Visit [facility] [address] [place] [address] TarkaEtta, OD [address] [place] [address] documented as of this encounter Visit Diagnoses Not on filedocumented in this encounter Additional Health Concerns Assessment Noted Time PHQ-9 Depression Total Score: 0 09/16/19 3:09 PM EDT documented as of this encounter Care Teams Member Of Parliament Relationship Specialty Start Date End Date Francisca Barrios NP [address] [place] [address] PCP - General Family Medicine 05/23/23 documented as of this encounter
--- OUTSIDE RECORDS SUMMARY | 2024-12-22 13:02 | XMS_ITS | Encounter Summary ---
Author Organization [employer] [facility] Address [address] [place] [address] Care Team Providers Care Automotive Machinist Apprentice Name Role Phone Francisca Barrios NP Primary Care Provider [phone] Encounter Details Date Type Department Care Team (Late st Contact Info) Description 03/28/2024 Orders Only [facility] [address] [place] [address] Francisca Barrios NP [address] [place] [address] Malodorous urine (Primary Dx) Social History Tobacco [...] Description 01/13/2025 10:30 AM EST Office Visit [facility] OPT[facility] [address] [place] [address] TarEtta dennis, OD [address] [place] [address] documented as of this encounter Procedures Procedure Name Priority Date/Time Associated Diagnosis Comments CULTURE, URINE, ROUTINE Routine 04/14/2024 11:40 AM EST Malodorous urine documented in this encounter Results * Culture, Urine, Routine (04/14/2024 11:40 AM EST) Urine Urine specimen obtained by clean catch procedure / Unknown 04/14/2024 11:40 AM EST 04/14/2024 1:44 PM EST Comment:[facility] - 04/15/2024 9:10 AM EST Urine Culture No growth. Specimen Source: Urine clean catch Francisca Barrios NP LAB MICROBIOLOGY - GENERAL DARSHANA MONTEIRO Final Result [facility] [address] [place] [phone] [phone] documented in this encounter Visit Diagnoses Diagnosis Malodorous urine- Primary documented in this encounter Additional Health Concerns Assessment Noted Time PHQ-9 Depression Total Score: 0 05/23/19 9:05 AM EDT documented as of this encounter Care Teams Automotive Machinist Apprentice Relationship Specialty Start Date End Date Francisca Barrios NP [address] [place] [address] PCP - General Family Medicine 05/23/23 documented as of this encounter
--- OUTSIDE RECORDS SUMMARY | 2024-12-22 13:02 | XMS_ITS | Encounter Summary ---
Author Organization [employer] [facility] Address [address] [place] [address] [address] [place] [address] Care Team Providers Care Insurance Writer Name Role Phone OdilonFrancisca osullivan [employer] ARTISTIC DIRECTOR Primary Care Provider [phone] Reason for Visit * Reason Onset Date Comments New Patient 12/22/2022 Encounter Details Date Type Department Care Team (Late st Contact Info) Description 12/22/2022 Telephone [facility] MEDICINE [address] [place] [address] Dario Green MD [address] [place] [address] New Patient Social History Tobacco Use Types [...] been transfer over to wait list for [employer] ARTISTIC DIRECTOR. EFFECTIVE SINCE 12/22/2022 documented in this encounter Plan of Treatment Upcoming Encounters Date Type Department Care Team (Late st Contact Info) Description 01/13/2025 10:30 AM EST Office Visit [facility] OPTOMETRY [address] [place], [place] [phone] Etta Mendoza OD [address] [place], [place] [phone] documented as of this encounter Visit Diagnoses Not on filedocumented in this encounter Care Teams Insurance Writer Relationship Specialty Start Date End Date Francisca Barrios NP [address] [place] [id number] PCP - General Family Medicine 05/23/23 documented as of this encounter
--- OUTSIDE RECORDS SUMMARY | 2024-12-22 13:02 | XMS_ITS | Clinical Summary ---
Author Organization [facility] Address [address] [place] [address] Care Team Providers Care Associate Professor Of Theatre Name Role Phone Francisca Barrios NP Primary Care Provider [phone] Allergies No known active allergies Medications Multiple Vitamin (multivitamin) tablet Take 1 tablet by mouth in the morning. Active lidocaine (Lidoderm) 5 % patchIndications:A cute bilateral low back pain without sciatica,Bilateral anterior knee pain Apply 1 patch topically Once per day. Remove & discard patch within 12 hours or as directed by MD. 30 patch 1 5 Active Diclofenac Sodium 1 % gelIndications:Acu te bilateral low back pain without sciatica,Bilateral anterior knee pain Apply 1 g topically if needed in the morning, at noon, and at bedtime (pain). 100 g 5 01/22/20 25 Active ibuprofen 600 MG tabletIndications: Acute bilateral low back pain without sciatica Take 1 tablet (600 mg) by mouth every 6 (six) hours if needed for mild pain for up to 14 days. 56 tablet 5 01/06/20 25 Active norelgestromin-eth inyl estradiol (Xulane) 150-35 MCG/24HRIndication s:Encounter for initial prescription of transdermal patch hormonal contraceptive device Apply 1 patch each week for 3 weeks, then have no patch for 1 week. Repeat 3 patch 12 5 Active Active Problems Problem Noted Date Diagnosed [...] pelvis requisition reprinted. Patient advised to call [facility] [place] -will follow-up with pt after CT results have been obtained Assessment & Plan (05/23/2023 1:12 PM EDT): -POCT urinalysis positive with nitrites -urine sent out for culture -prescription for nitrofurantoin sent to pharmacy. Will change antibiotic pending culture results -advised increase water intake -previous CT order reprinted. Patient advised to call [facility] [place] Skin lesion of breast 05/23/2023 [...] Encounters Date Type Department Care Team Description 12/22/2024 9:15 AM EST Office Visit [facility] MEDICINE [address] [place] [phone] Francisca Barrios NP Acute bilateral low back pain without sciatica (Primary Dx); Bilateral anterior knee pain; Palpitations; Routine screening for STI (sexually transmitted infection); Encounter for immunization; Dietary counseling; Exercise counseling; Overweight; Encounter for initial prescription of transdermal patch hormonal contraceptive device; History of ovarian cyst 12/22/2024 Travel 12/19/2024 Telephone [facility] MEDICINE [address] [place] [phone] Francisca Barrios NP Chart Prep 12/15/2024 Patient Outreach [facility] [address] [place] [address] Francisca Barrios NP Pre-visit Planning (SDOH was already completed) 10/03/2024 Telephone [facility] MEDICINE [address] [place] [address] Camila Arroyo [place] october recall 09/29/2024 Results Follow-Up [facility] [address] [place] [phone] Francisca Barrios NP Culture, Urine, Routine, Mycoplasma/Ureaplasma Panel from Last 3 Months Immunizations Immunization Administration Dates Next Due HepB-CpG 05/16/2023,04/04/2023 Influenza Injectable Quadriv alant Preservative Free IIV4 MDCK 02/09/2021 Influenza, seasonal, injectable, preservative fr ee 12/22/2024 Tdap 04/12/2021,01/11/2021 Family History Medical History Relation [...] Mass Index 25.23 12/22/2024 9:10 AM EST Plan of Treatment Upcoming Encounters Date Type Department Care Team (Late st Contact Info) Description 01/13/2025 10:30 AM EST Office Visit [facility] OPTOMETRY [address] [place] [address] TarkaEtta, OD [address] [place] [address] Health Maintenance Due Date Last Done Comments HIV Screening 1994 Family Planning (PISQ) 2009 HPV Vaccines (1 - 3-dose series) 2009 Hepatitis C Screening 2012 HPV/Cotest 2024 Dental Oral Exam 09/17/2024 03/19/2024 COVID-19 Vaccine ( - 2023-2 5 season) 2024 Alcohol/Substance Use Screening 01/31/2025 02/01/2024 Dental X-Ray: Bitewings 03/20/2025 03/19/2024 Dental Prophylaxis 03/22/2025 09/18/2024, 03/19/2024 Depression Screening 09/15/2025 09/15/2024, 09/15/2024 Disability Screening 09/15/2025 09/15/2024 SDOH Screening 09/15/2025 09/15/2024 Tobacco Screening 12/22/2025 12/22/2024 Cervical Cancer Screening 09/12/2026 Pap Smear 09/12/2026 09/13/2023, 12/28/2020, 12/28/2020 Dental X-Ray: Full Mouth 03/20/2027 03/19/2024 DTaP/Tdap/Td Vaccines (3 - T d or Tdap) 04/12/2031 04/12/2021, 01/11/2021 Zoster Vaccines (1 of 2) 2044 RSV Patients and Patients Aged 60 years or older (1 - 1-dose 75+ series) 2069 Hepatitis B Vaccines Completed 05/16/2023, 04/04/2023 Influenza Vaccine Completed 12/22/2024, 02/09/2021 HIB Vaccines Aged Out No longer eligi [...] prescription of transdermal patch hormonal contraceptive device PROPHYLAXIS - ADULT Routine 09/18/2024 3 :00 PM EDT Dental calculus INTRAORAL - COMPLETE SERIES OF RADIOGRAPHIC IMAGES Routine 03/19/2024 8:00 AM EST Dental calculus COMPREHENSIVE ORAL EVALUATION - NEW OR ESTABLISHED PATIENT Routine 03/19/2024 8:00 AM EST HM PAP/HPV Routine 12/28/2020 from Last 3 Months or Most Recently Relevant to Health Maintenance Results * POCT , urine manually resulted (12/22/2024 10:46 AM EST) Preg Test, Ur Negative Negative, Indeterminate, None Detected, Invalid, Specimen unsatisfactory for evaluation, Weakly Positive, 2+ QC Media Lot # [id number] Lot# Expiration Date [id number] Urine 12/22/2024 10:4 6 AM EST Francisca Sophie IMPREGNATOR AND DRIER HELPER POINT OF CARE TEST ENTER/EDIT O RDERABLES Final Result * PAP/HPV (12/28/2020) Pap Smear 1. NILM 1. NILM Historical Provider HEALTH MAINTENANCE Final Result from Last 3 Months or Most Recently Relevant to Health Maintenance Insurance [facility] Care Teams Associate Professor Of Theatre Relationship Specialty Start Date End Date Francisca Barrios NP [address] [place] [address] PCP - General Family Medicine 05/23/23
[2024-12-22 13:07] LABS: MANUAL DIFF FLAG NO
[2024-12-22 13:12] LABS: Hematocrit 40.6 % (37.0-47.0); Hemoglobin 13.2 g/dl (12.0-16.0); Imm Gran Abs Auto 0.02 X10*3/uL (0.00-0.03); Imm Gran Pct Auto 0.2 % (0.0-0.4); Lymphocytes Absolute Auto 3.0 X10*3/uL (1.2-4.9); Mean Corpuscular HGB Conc 32.5 g/dl (31.0-35.0); Mean Corpuscular Hemoglobin 29.2 pg (27.0-33.0); Mean Corpuscular Volume 89.8 fL (80.0-98.0); NRBC Abs Auto 0.000 X10*3/uL (0.0-0.012); NRBC Pct Auto 0.0 /100WBC (0.0-0.2); Platelet Count 377 X10*3/uL (160-400); Red Blood Count 4.52 X10*6/uL (4.20-5.50); White Blood Count 9.8 X10*3/uL (4.8-10.8)
[2024-12-22 13:41] LABS: Anion Gap 6 (12-20); Blood Urea Nitrogen 10 mg/dL (9-16); Calcium 8.8 mg/dL (8.4-10.2); Carbon Dioxide 28 mmol/L (22-29); Chloride 109 mmol/L (96-108); Estimated Glomerular Filt Rate > 60; Potassium 3.4 mmol/L (3.3-5.1); Sodium 140 mmol/L (135-145)
[2024-12-22 14:50] LABS: CT PCR Urine NOT DETECTED (Not Detect.); NG PCR Urine NOT DETECTED (Not Detect.)
[2024-12-23 05:32] LABS: Syphilis Screen Nonreactive (Nonreactive)
[2024-12-23 07:03] LABS: HBS Num1 > 1000.00 mIU/mL (0-7.99); HBc Num1 0.08 S/CO (0.00-0.79); HBsAGNum1 0.40 S/CO (0.00-0.99); HIV Num 1 0.05 S/CO (0.00-0.99); Hepatitis B Surface Antigen Negative (Negative); ~HepC Num1 0.11 S/CO (0.00-0.79); ~Hepatitis B Surface Antibody REACTIVE (Nonreactive); ~Hepatitis C Antibody Nonreactive (Nonreactive)
== END 2024-12-22 10:41 | disposition home or self-care (01) ==
LOC: HO.HHCL 10:40
PROVIDERS: PCP Nurse Practitioner; Visit Provider Nurse Practitioner
DX: R00.2 Palpitations (principal); Z20.2 Contact with and (suspected) exposure to infections with a predominantly sexual mode of transmission; Z11.4 Encounter for screening for human immunodeficiency virus [HIV]; Z11.59 Encounter for screening for other viral diseases
CPT/HCPCS: 36415; 80048; 84443; 85025; 86704; 86706; 86780; 86803; 87340; 87389; 87491; 87591; 87661

== ENCOUNTER 2025-01-31 08:41 | Outpatient (REF) | payer OTHER, SELFPAY ==
--- NOTE | ~2025-01-31 | US_ITS ---
EXAMINATION: US PELVIS TRANSABDOMINAL AND TRANSVAGINAL HISTORY: history of bilateral ovarian cyst COMPARISON: There are no prior studies available for comparison. TECHNIQUE: Transabdominal and transvaginal evaluation FINDINGS: LMP:Last week Uterus: The uterus is normal in size, anteverted and anteflexed, measuring 6.8 x 3.3 x 4.2 cm. Myometrium has a normal echotexture. No uterine lesions identified. Endometrium: The endometrial stripe measures 6 mm in thickness. Right ovary: The right ovary measures 3.7 x 1.9 x 3.3 cm. Volume 12.2 The right ovary is normal in size and echotexture. Complex cyst measuring 1.5 x 1 x 1.5 cm, possible corpus luteal cyst. Left ovary: The left ovary measures 3.4 x 1.7 x 2.6 cm. Volume 7.9 mL left ovarian cysts, larger measuring 1.6 cm. Pelvic fluid: Small free fluid in the cul-de-sac.. US/US pelvic and transvaginal IMPRESSION: Right ovarian 1.5 cm complex cyst, probable corpus luteal cyst. Follow-up ultrasound in 6-8 weeks as clinically indicated. Electronically signed by: Alvin Cantor MD 02/02/2025 11:07 AM GIOVANNY
--- OUTSIDE RECORDS SUMMARY | 2025-01-31 08:43 | XMS_ITS | Encounter Summary ---
Author Organization [employer] Address [address] [place] [address] Care Team Providers Care Telephone Operators Supervisor Name Role Phone Francisca Barrios NP Primary Care Provider Encounter Details Date Type Department Care Team (Late st Contact Info) Description 12/06/2023 Orders Only [facility] MEDICINE [address] [place] [address] Provider, MD Fifi Social History Tobacco Use [...] Care Team (Late st Contact Info) Description 03/23/2025 9:30 AM EST Office Visit [facility] ADULT DENTAL [address] [place] [address] Bree, Mary [address] [place] [address] documented as of this encounter Procedures Procedure [...] documented as of this encounter Care Teams Telephone Operators Supervisor Relationship Specialty Start Date End Date Francisca Barrios NP [address] [place] [address] PCP - General Family Medicine 05/23/23 documented as of this encounter
--- OUTSIDE RECORDS SUMMARY | 2025-01-31 08:43 | XMS_ITS | Encounter Summary ---
Author Organization [employer] [facility] Address [address] [place] [address] [address] [place] [address] Care Team Providers Care Glass Cut Off Supervisor Name Role Phone Praveena Barriosiel SUPERVISOR SHUTTLE FITTING Primary Care Provider [phone] Reason for Visit * Reason Onset Date Comments New Patient 12/22/2022 Encounter Details Date Type Department Care Team (Late st Contact Info) Description 12/22/2022 Telephone [facility] MEDICINE [address] [place] [address] Dario Green MD [address] [place] [address] New Patient Social History Tobacco Use Types [...] been transfer over to wait list for SUPERVISOR SHUTTLE FITTING. EFFECTIVE SINCE 12/22/2022 documented in this encounter Plan of Treatment Upcoming Encounters Date Type Department Care Team (Late st Contact Info) Description 03/23/2025 9:30 AM EST Office Visit [facility] ADULT DENTAL [address] [place] [address] Mary Giron [address] [place] [address] documented as of this encounter Visit Diagnoses Not on filedocumented in this encounter Care Teams Glass Cut Off Supervisor Relationship Specialty Start Date End Date Francisca Barrios NP [address] [place] [phone] PCP - General Family Medicine 05/23/23 documented as of this encounter
--- OUTSIDE RECORDS SUMMARY | 2025-01-31 08:43 | XMS_ITS | Clinical Summary ---
Author Organization [employer] Address [address] [place] [address] Care Team Providers Care Salvager Helper Name Role Phone Francisca Barrios NP Primary Care Provider [phone] Allergies No known active allergies Medications Multiple Vitamin (multivitamin) tablet Take 1 tablet by mouth in the morning. Active lidocaine (Lidoderm) 5 % patchIndications: Acute bilateral low back pain without sciatica,Bilatera l anterior knee pain Apply 1 patch topically Once per day. Remove & discard patch within 12 hours or as directed by MD. 30 patch 1 5 Active norelgestromin-et hinyl estradiol (Xulane) 150-35 MCG/24HRIndicatio ns:Encounter for initial prescription of transdermal patch hormonal contraceptive device Apply 1 patch each week for 3 weeks, then have no patch for 1 week. Repeat 3 patch 12 5 Active Diclofenac Sodium 1 % gelIndications:Ac kat bilateral low back pain without sciatica,Bilatera l anterior knee pain Apply 1 g topically if needed in the morning, at noon, and at bedtime (pain). 100 g 5 01/22/20 25 ibuprofen 600 MG tabletIndications :Acute bilateral low back pain without sciatica Take 1 tablet (600 mg) by mouth every 6 (six) hours if needed for mild pain for up to 14 days. 56 tablet 5 01/06/20 25 Active Problems Problem Noted Date Diagnosed Date [...] pelvis requisition reprinted. [place] [facility] [place]will follow-up with pt after CT results have been obtained Assessment & Plan (05/23/2023 1:12 PM EDT): -POCT urinalysis positive with nitrites -urine sent out for culture -prescription for nitrofurantoin sent to pharmacy. Will change antibiotic pending culture results -advised increase water intake -previous CT order reprinted. Patient advised [place] [facility] [place] Skin lesion of breast 05/23/2023 [...] Encounters Date Type Department Care Team Description 01/13/2025 10:30 AM EST Office Visit [facility] [address] [place] [address] Etta Mendoza, OD Encounter for examination of eyes and vision without abnormal findings (Primary Dx); Hypermetropia, left 01/13/2025 Travel 01/12/2025 Travel 12/25/2024 Results Follow-Up [facility] [address] [place] [address] Francisca Barrios NP Chlamydia/N. Gonorrhoeae, PCR, Urine, Trichomonas RNA (Urine/Vaginal), TSH W/Reflex to FT4, Additional followed-up results: 9 12/22/2024 9:15 AM EST Office Visit [facility] [address] [place] [address] Francisca Barrios NP Acute bilateral low back pain without sciatica (Primary Dx); Bilateral anterior knee pain; Palpitations; Routine screening for STI (sexually transmitted infection); Encounter for immunization; Dietary counseling; Exercise counseling; Overweight; Encounter for initial prescription of transdermal patch hormonal contraceptive device; History of ovarian cyst 12/22/2024 Travel 12/19/2024 Telephone [facility] [address] [place] [address] Francisca Barrios NP Chart Prep 12/15/2024 Patient Outreach [facility] [address] [place] [address] Francisca Barrios NP Pre-visit Planning (SDOH was already completed) from Last 3 Months Immunizations Immunization Administration [...] Description 03/23/2025 9:30 AM EST Office Visit [facility] ADULT DENTAL [address] [place] [address] Bree, Mary [address] [place] [address] Health Maintenance Due Date Last Done Comments Family Planning (PISQ) 2009 HPV Vaccines (1 - 3-dose series) 2009 HPV/Cotest 2024 Dental Oral Exam 09/17/2024 03/19/2024 COVID-19 Vaccine (2024-2 6 season) 2024 Alcohol/Substance Use Screening 01/31/2025 02/01/2024 Dental X-Ray: Bitewings 03/20/2025 03/19/2024 Dental Prophylaxis 03/22/2025 09/18/2024, 03/19/2024 Depression Screening 09/15/2025 09/15/2024, 09/15/2024 Disability Screening 09/15/2025 09/15/2024 SDOH Screening 09/15/2025 09/15/2024 Tobacco Screening 01/13/2026 01/13/2025 Cervical Cancer Screening 09/12/2026 Pap Smear 09/12/2026 09/13/2023, 12/28/2020, 12/28/2020 Dental X-Ray: Full Mouth 03/20/2027 03/19/2024 DTaP/Tdap/Td Vaccines (3 - T d or Tdap) 04/12/2031 04/12/2021, 01/11/2021 Zoster Vaccines (1 of 2) 2044 RSV Patients and Patients Aged 60 years or older (1 - 1-dose 75+ series) 2069 Hepatitis B Vaccines Completed 05/16/2023, 04/04/2023 HIV Screening Completed 12/22/2024 Hepatitis C Screening Completed 12/22/2024 Influenza Vaccine Completed 12/22/2024, 12/14/2021, 02/09/2021 HIB Vaccines Aged Out No longer [...] Procedure Name Priority Date/Time Associated Diagnosis Comments HEPATITIS B CORE AB TOTAL Routine 12/22/2024 10:53 AM EST Routine screening for STI (sexually transmitted infection) HEPATITIS B SURFACE ANTIBODY, QUALITATIVE Routine 12/22/2024 10:53 AM EST Routine screening for STI (sexually transmitted infection) HEPATITIS B SURFACE ANTIGEN, EIA Routine 12/22/2024 10:53 AM EST Routine screening for STI (sexually transmitted infection) HEPATITIS C AB W/REFL TO HCV RNA, QN, PCR Routine 12/22/2024 10:53 AM EST Routine screening for STI (sexually transmitted infection) HIV 1/2 ANTIGEN/ANTIBODY, FOURTH GENERATION W/RFL Routine 12/22/2024 10:53 AM EST Routine screening for STI (sexually transmitted infection) SYPHILIS SCREEN Routine 12/22/2024 10:53 AM EST Routine screening for STI (sexually transmitted infection) BASIC METABOLIC PANEL Routine 12/22/2024 10:53 AM EST Palpitations CBC WITH AUTO DIFFERENTIAL Routine 12/22/2024 10:53 AM EST Palpitations TSH W/REFLEX TO FT4 Routine 12/22/2024 1 0:53 AM EST Palpitations POCT , URINE Routine 12/22/2024 10:46 AM EST Encounter for initial prescription of transdermal patch hormonal contraceptive device TRICHOMONAS VAGINALIS RNA, QUALITATIVE, TMA Routine 12/22/2024 10:43 AM EST Routine screening for STI (sexually transmitted infection) CHLAMYDIA/TRICHOMONAS /NEISSERIA GONORRHOEAE, PCR, URINE Routine 12/22/2024 10:43 AM EST Routine screening for STI (sexually transmitted infection) PROPHYLAXIS - ADULT Routine 09/18/2024 3 :00 PM EDT Dental calculus INTRAORAL - COMPLETE SERIES OF RADIOGRAPHIC IMAGES Routine 03/19/2024 8:00 AM EST Dental calculus COMPREHENSIVE ORAL EVALUATION - NEW OR ESTABLISHED PATIENT Routine 03/19/2024 8:00 AM EST HM PAP/HPV Routine 12/28/2020 from Last 3 Months or Most Recently Relevant to Health Maintenance Results * Syphilis Screen (12/22/2024 10:53 AM EST) Syphilis Screen Nonreactive Nonreactive [facility] Blood Venous blood specimen / Unknown 12/22/2024 10:53 AM EST 12/22/2024 12:56 PM EST [facility] [employer] LAB BLOOD ORDERABLES Final Resu lt Performing Organization Address City/[facility]/ZIP Co de Phone Number [facility] [address] [place] [phone] * TSH W/Reflex to FT4 (12/22/2024 10:53 AM EST) Pathologist [facility] TSH reflex Free T4 0.84 0.32 - 4.0 uIU/mL [facility] Blood Venous blood specimen / Unknown 12/22/2024 10:53 AM EST 12/22/2024 12:56 PM EST [facility] [employer] LAB BLOOD ORDERABLES Final Resu lt Performing Organization Address [facility] Co de Phone Number [facility] [address] [place] [phone] * CBC auto differential (12/22/2024 10:53 AM EST) Pathologist [facility] White Blood Count 9.8 4.8 - 10.8 X10*3/uL [facility] Red Blood Count 4.52 4.20 - 5.50 X10*6/uL [facility] Hemoglobin 13.2 12.0 - 16.0 g/dl [facility] Hematocrit 40.6 37.0 - 47.0 % [facility] Mean Corpuscular Volume 89.8 80.0 - 98.0 fL [facility] Mean Corpuscular Hemoglobin 29.2 27.0 - 33.0 pg [facility] Mean Corpuscular HGB Conc 32.5 31.0 - 35.0 g/dl [facility] Red Cell Distribution Width 13.0 11.0 - 16.0 % [facility] Platelet Count 377 160 - 400 X10*3/uL [facility] Mean Platelet Volume 9.9 9.4 - 12.3 fL [facility] Neutrophils Percent Auto 62.7 45 - 73 % [facility] Imm Gran Pct Auto 0.2 0.0 - 0.4 % [facility] Lymphocytes Percent Auto 30.8 20 - 40 % [facility] Monocytes Percent Auto 5.4 2 - 11 % [facility] Eosinophils Percent Auto 0.6 0 - 4 % [facility] Basophils Percent Auto 0.3 0 - 2 % [facility] NRBC Pct Auto 0.0 0.0 - 0.2 /100WBC [facility] Neutrophils Absolute Auto 6.1 2.0 - 8.3 x10*3/uL [facility] Imm Gran Abs Auto 0.02 0.00 - 0.03 X10*3/uL [facility] Lymphocytes Absolute Auto 3.0 1.2 - 4.9 X10*3/uL [facility] Monocytes Absolute Auto 0.5 0.1 - 1.2 X10*3/uL [facility] Eosinophils Absolute Auto 0.1 0.0 - 0.4 X10*3/uL [facility] Basophils Absolute Auto 0.0 0.0 - 0.2 X10*3/uL [facility] NRBC Abs Auto 0.000 0.0 - 0.012 X10*3/uL [facility] Blood Venous blood specimen / Unknown 12/22/2024 10:53 AM EST 12/22/2024 12:56 PM EST us Francisca Barrios NP LAB BLOOD ORDERABLES Final Resu lt [facility] [address] [place] [phone] * Hepatitis C Antibody with Reflex to HCV, RNA, Quantitative, Real-Time PCR (12/22/2024 10:53 AM EST) Hepatitis C Antibody Nonreactive Nonreactive [facility] Comment:Antibodies to HCV no t detected; does not exclude early acuteHCV infection. Blood Venous blood specimen / Unknown 12/22/2024 10:53 AM EST 12/22/2024 12:56 PM EST Francisca Donald [employer] LAB BLOOD ORDERABLES Final Resu lt Performing Organization Address [facility]/ZIP Co de Phone Number [facility] [address] [place] [phone] * Hepatitis B surface antigen, EIA (12/22/2024 10:53 AM EST) Hepatitis B Surface Ag Negative Negative [facility] Blood Venous blood specimen / Unknown 12/22/2024 10:53 AM EST 12/22/2024 12:56 PM EST Francisca Donald [employer] LAB BLOOD ORDERABLES Final Resu lt Performing Organization Address [facility] Co de Phone Number [facility] [address] [place] [phone] * Hepatitis B Core Antibody, Total (12/22/2024 10:53 AM EST) Hepatitis B Core Antibody Nonreactive Nonreactive [facility] Blood Venous blood specimen / Unknown 12/22/2024 10:53 AM EST 12/22/2024 12:56 PM EST Francisca Donald [employer] LAB BLOOD ORDERABLES Final Resu lt Performing Organization Address [facility] de Phone Number [facility] [address] [place] [address] [phone] * HIV-1/2 Antigen and Antibodies, Fourth Generation, with Reflexes (12/22/2024 10:53 AM EST) HIV AB/AG Nonreactive Nonreactive [facility] Comment:HIV-1 p24 Ag and/or HIV-1/HIV-2 Ab not detected.A test result that is nonreactive does not exclude thepossibility of exposure to or infection with HIV-1 and/orHIV-2. Nonreactive results in this assay for individualswith prior exposure to HIV-1 and/or HIV-2 may be due toantigen and antibody levels that are below the limit ofdetection of this assay.The AquaMobileniDone In :60 Seconds HIV Ag/Ab Combo assay result andsupplemental assay results should be interpreted inconjunction with the patient's clinical presentation,history and other laboratory results. If the results areinconsistent with clinical evidence, additional testing issuggested to confirm the result. Blood Venous blood specimen / Unknown 12/22/2024 10:53 AM EST 12/22/2024 12:56 PM EST [facility] LAB BLOOD ORDERABLES Final Resu lt Performing Organization Address [facility] Co de Phone Number [facility] [address] [place] [address] [phone] * Hepatitis B Surface Antibody, Qualitative (12/22/2024 10:53 AM EST) Pathologist [facility] ~Hepatitis B Surface Antibody REACTIVE Nonreactive [facility] Comment:REACTIVE: > 11.99 mI U/mL Blood Venous blood specimen / Unknown 12/22/2024 10:53 AM EST 12/22/2024 12:56 PM EST [facility] LAB BLOOD ORDERABLES Final Resu lt Performing Organization Address [facility] Co de Phone Number [facility] [address] [place] [address] [phone] * (ABNORMAL) Basic Metabolic Panel (12/22/2024 10:53 AM EST) Pathologist [facility] Sodium 140 135 - 145 mmol/L [facility] Potassium 3.4 3.3 - 5.1 mmol/L [facility] Chloride 109(H) 96 - 108 mmol/L [facility] Carbon Dioxide 28 22 - 29 mmol/L [facility] Anion Gap 6(L) 12 - 20 [facility] Urea Nitrogen (BUN) 10 9 - 16 mg/dL [facility] Creatinine, Serum 0.60 0.5 - 1.4 mg/dL [facility] Estimated Glomerular Filt Rate >60 [facility] Comment:Chronic Kidney Disea se: Estimated GFR < 60 mL/min/1.17u8Imfxxc Kidney Disease: Estimated GFR < 15 mL/min/1.73m2 Glucose 84 60 - 115 mg/dL [facility] Calcium 8.8 8.4 - 10.2 mg/dL [facility] Blood Venous blood specimen / Unknown 12/22/2024 10:53 AM EST 12/22/2024 12:56 PM EST [facility] LAB BLOOD ORDERABLES Final Resu lt Performing Organization Address City/State/[facility] Co de Phone Number [facility] [address] [place] [phone] * POCT , urine manually resulted (12/22/2024 10:46 AM EST) Pathologist [facility] Preg Test, Ur Negative Negative, Indeterminate, None Detected, Invalid, Specimen unsatisfactory for evaluation, Weakly Positive, 2+ QC Media Lot # [id number] Lot# Expiration Date [id number] Urine 12/22/2024 10:4 6 AM EST [facility] POINT OF CARE TEST ENTER/EDIT O RDERABLES Final Result * Chlamydia/N. Gonorrhoeae, PCR, Urine (12/22/2024 10:43 AM EST) Pathologist [facility] CT PCR, Urine NOT DETECTED Not Detect. [facility] Comment:A not detected test result does not exclude the possibilityof infection because test results can be affected byimproper specimen collection, concurrent antibiotic therapy,or the number of organisms in the specimen which may bebelow the sensitivity of the test. As with many diagnostictests, results from the Xpert CT/NG assay should beinterpreted in conjunction with other laboratory andclinical data available to the clinician.The Xpert CT/NG assay should not be used for the evaluationof suspected sexual abuse or for other medico-legalindications. Additional testing is recommended in anycircumstance when false positive or false negative resultscould lead to adverse medical, social or psychologicalconsequences. NG PCR, Urine NOT DETECTED Not Detect. [facility] Comment:A not detected test result does not exclude the possibilityof infection because test results can be affected byimproper specimen collection, concurrent antibiotic therapy,or the number of organisms in the specimen which may bebelow the sensitivity of the test. As with many diagnostictests, results from the Xpert CT/NG assay should beinterpreted in conjunction with other laboratory andclinical data available to the clinician.The Xpert CT/NG assay should not be used for the evaluationof suspected sexual abuse or for other medico-legalindications. Additional testing is recommended in anycircumstance when false positive or false negative resultscould lead to adverse medical, social or psychologicalconsequences. Urine (Urine, Random) 12/22/2024 10:43 AM EST 12/22/2024 1:00 PM EST [facility] URINE ORDERABLES Final Resu lt [facility] [address] [place] [phone] * Trichomonas RNA (Urine/Vaginal) (12/22/2024 10:43 AM EST) Trichomas vaginalis RNA, QL, TMA NOT DETECTED NOT DETECTED [facility] Comment:For additional infor elis, please refer tohttp://education.[employer]/faq/Trichomonastma(This link is being provided for informational/educational purposes only.)THIS TEST WAS PERFORMED AT:[employer] [place] [phone] GARCIA MD Swab 12/22/2024 10:4 3 AM EST 12/22/2024 1:00 PM EST Francisca Barrios NP LAB BODY FLUIDS AND STOOLS DARSHANA MONTEIRO Final Result [facility] [address] [place] [address] [phone] * PAP/HPV (12/28/2020) Pap Smear 1. NILM 1. NILM Historical Provider HEALTH MAINTENANCE Final Result from Last 3 Months or Most Recently Relevant to Health Maintenance Insurance [place] [id number] [place] [phone] [facility] Care Teams Salvager Helper Relationship Specialty Start Date End Date Francisca Barrios NP [address] [place] [address] PCP - General Family Medicine 05/23/23
--- OUTSIDE RECORDS SUMMARY | 2025-01-31 08:43 | XMS_ITS | Encounter Summary ---
Author Organization [employer] Address 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 Name Role Phone Francisca Barrios NP Primary Care Provider [phone] Encounter Details Date Type Department Care Team (Late st Contact Info) Description 03/28/2024 Orders Only [facility] MED[facility] [address] [place] [address] Francisca Barrios NP [address] [place] [address] Malodorous urine (Primary Dx) Social History Tobacco [...] Description 03/23/2025 9:30 AM EST Office Visit [facility] ADULT DENTAL [address] [place] [address] Bree, Mary [address] [place] [address] documented as of this encounter Procedures Procedure Name Priority Date/Time Associated Diagnosis Comments CULTURE, URINE, ROUTINE Routine 04/14/2024 11:40 AM EST Malodorous urine documented in this encounter Results * Culture, Urine, Routine (04/14/2024 11:40 AM EST) Urine Urine specimen obtained by clean catch procedure / Unknown 04/14/2024 11:40 AM EST 04/14/2024 1:44 PM EST Comment:[facility] - 04/15/2024 9:10 AM EST Urine Culture No growth. Specimen Source: Urine clean catch Francisca Barrios NP LAB MICROBIOLOGY - GENERAL DARSHANA MONTEIRO Final Result [facility] [address] [place] [phone] documented in this encounter Visit Diagnoses Diagnosis Malodorous urine- Primary documented in this encounter Additional Health Concerns Assessment Noted Time PHQ-9 Depression Total Score: 0 05/23/19 9:05 AM EDT documented as of this encounter Care Teams Steel Layout Worker Relationship Specialty Start Date End Date Francisca Barrios NP [address] [place] [address] PCP - General Family Medicine 05/23/23 documented as of this encounter
== END 2025-01-31 08:42 | disposition home or self-care (01) ==
LOC: HO.US 08:41
PROVIDERS: PCP Nurse Practitioner; Visit Provider Nurse Practitioner
DX: Z87.42 Personal history of other diseases of the female genital tract (principal)
CPT/HCPCS: 76830; 76856